=== PATIENT | female | born 1960 | race Caucasian/White ===

== ENCOUNTER → 2017-02-13 | Day surgery (SDC) | payer OTHER ==
[~2017-02-13] MED LIST: LOSARTAN-HCTZ1 EACH PO; PROTONIX PO; ZOCOR20 MG PO
--- NOTE | ~2017-02-13 | OR ---
Unit #: [id number] #: [id number] Patient: DEBBIE LINDQUIST [id number] [facility]. [address] [place], [place] [address] [id number] O MR#: [id number] NAME: DEBBIE LINDQUIST ROOM: Date of Procedure: 02/13/2017 Admission Date: 02/13/2017 Surgeon: Romaine Salter M.D. : 1960 Attending Physician: Romaine Salter M.D. Primary Care Physician: Enoch Borges M.D. OPERATIVE REPORT PREOPERATIVE DIAGNOSES Postprandial dyspepsia and retrosternal ascending heartburn. In addition, the patient has come for surveillance colonoscopy having had personal history of colon polyps. PROCEDURES PERFORMED Upper gastrointestinal endoscopy as well as colonoscopy up to cecum. POSTOPERATIVE DIAGNOSES For upper endoscopy: Completely normal examination up to third part of duodenum. For colonoscopy: Mild sigmoid and descending colon diverticulosis. RECOMMENDATIONS Repeat colonoscopy in 5 years. The patient was given Anusol-HC suppositories in case of any bleeding, which is most likely from contact in the anal canal and rectal mucosa. Since no internal hemorrhoids were seen, the patient was reassured that no hemorrhoidal band ligation is needed. SEDATION USED MAC. DESCRIPTION OF PROCEDURE Following detailed explanation of potential risks and complications of an upper endoscopy and a colonoscopy, namely perforation, bleeding, and complications related to sedation, the patient was brought to GI lab and laid in the left lateral decubitus position. Lubricated tip of the Olympus video upper endoscope was passed through the bite block into the proximal esophagus under direct vision. The entire esophageal mucosa was examined and appeared normal. Z-line was nicely demarcated, there being no esophagitis or hiatus hernia. The scope was then advanced into the gastric cavity and the latter was insufflated. Mucosa of the fundus, body, and antrum was examined and appeared unremarkable. Pylorus was intubated with visualization of the normal duodenal bulb and second and third part of the duodenum. Upon withdrawal and retroflexion, incisura, cardia, and greater curve was examined and a biopsy was obtained from the antrum for CLOtest. The scope was then withdrawn in the distal esophagus. Biopsies were also obtained from the distal esophageal mucosa from the GE junction to look for any evidence of short segment of Walter esophagus. The patient also was noted to have few erosions at the junction of the Unit #: [id number] #: [id number] Patient: DEBBIE LINDQUIST stomach and esophagus indicating mild antral gastritis. The scope was then withdrawn all the way up to pharynx and no additional findings were noted. The examination table was then turned by 180 degrees and the patient was positioned for a colonoscopy. A digital rectal examination was performed, which was normal. Lubricated tip of the Olympus video colonoscope was inserted through the anus and advanced under direct vision. The scope was advanced past rectosigmoid into descending colon. Multiple medium-sized diverticula were noted in this area. The scope tip was then navigated all the way up to cecum with visualization of the ileocecal valve and the appendiceal orifice. Preparation was excellent with good visualization and photodocumentation was obtained. Successive segments of the colonic mucosa were examined upon withdrawal and appeared unremarkable. There being no polyps, mass lesions, or AVMs. Other than the left-sided diverticulosis, no other abnormalities were noted. The patient did not have any hemorrhoids at anal verge. The scope was then withdrawn and the patient returned to the recovery area. She tolerated the procedure without any postprocedure complications. Dictated by... Ayanna Pelletier/naa TD: 02/13/2017 13:30 JOB #: [id number] OPERATIVE REPORT Page 1 of 1 X Romaine Salter MD X PROCEDURE OPERATIVE NOTE
== END | disposition home or self-care (01) ==
LOC: COPS 06:56
DX: Z12.11 Encounter for screening for malignant neoplasm of colon (principal); K29.70 Gastritis, unspecified, without bleeding; K57.30 Diverticulosis of large intestine without perforation or abscess without bleeding; K21.0 Gastro-esophageal reflux disease with esophagitis; Z86.010 Personal history of colon polyps; Z79.899 Other long term (current) drug therapy; Z98.890 Other specified postprocedural states
CPT/HCPCS: 87077; 88305; J2250